=== PATIENT | male | born 1990 | race American Indian/Alaskan Native ===

== ENCOUNTER 2016-11-16 10:44 | Emergency (ER) | payer MEDICAID ==
--- NOTE | 2016-11-16 16:34 | Emergency Department Report ---
ED General Adult HPI - General Chief complaint: Nausea/Vomiting/Diarrhea Stated complaint: VOMITING Time Seen by Provider: 11/16/16 16:29 Source: patient Mode of arrival: Ambulatory Limitations: No Limitations - History of Present Illness Initial comments: patient presents with 1 month onset of vomiting/coughing up greenish, slimy stuff. States throat hurts with coughing. Denies other associated symptoms including coughing/vomit/spitting up blood, SOB , heart burn, chest pain, feeling of fullness in throat when supine, dsyphagia to solid or liquid, choking-sensation, abdomen pain or discomfort, unintended weight loss/gain. Denies fever, chills, headaches, diarrhea. Denies hx of PR. States no help with Promethazine rx at urgent care 1 week ago. Denies other acute complaints today. - Related Data Previous Rx's Medication Instructions Recorded Last Taken Type Acetaminophen/Codeine 1 tab PO Q6H PRN #25 tab 10/05/14 Unknown Rx [Acetaminophen-Codeine #3 TAB] Cyclobenzaprine [Flexeril 10mg] 10 mg PO QHS #10 tablet 10/05/14 Unknown Rx Ibuprofen [Motrin] 600 mg PO Q8H PRN #40 tablet 10/05/14 Unknown Rx Azithromycin [Zithromax] 250 mg PO QDAY #6 tablet 11/16/16 Unknown Rx Benzonatate [Tessalon Perles] 100 mg PO Q8HR #30 capsule 11/16/16 Unknown Rx Montelukast [Singulair] 10 mg PO QPM #30 tablet 11/16/16 Unknown Rx Allergies Allergy/AdvReac Type Severity Reaction Status Date / Time Penicillins Allergy Swelling Verified 11/16/16 12:09 ED Review of Systems ROS: Stated complaint: VOMITING Other details as noted in HPI Comment: All other systems reviewed and negative ED Past Medical Hx - Past Medical History Additional medical history: CEREBRAL PALSY - Surgical History Additional Surgical History: BILATERAL LEG SURGERY - Social History Smoking Status: Never Smoker Substance Use Type: None - Medications Home Medications: Home Medications Medication Instructions Recorded Confirmed Last Taken Type Acetaminophen/Codeine 1 tab PO Q6H PRN #25 tab 10/05/14 Unknown Rx [Acetaminophen-Codeine #3 TAB] Cyclobenzaprine [Flexeril 10mg] 10 mg PO QHS #10 tablet 10/05/14 Unknown Rx Ibuprofen [Motrin] 600 mg PO Q8H PRN #40 tablet 10/05/14 Unknown Rx Azithromycin [Zithromax] 250 mg PO QDAY #6 tablet 11/16/16 Unknown Rx Benzonatate [Tessalon Perles] 100 mg PO Q8HR #30 capsule 11/16/16 Unknown Rx Montelukast [Singulair] 10 mg PO QPM #30 tablet 11/16/16 Unknown Rx ED Physical Exam - General Limitations: No Limitations General appearance: alert, in no apparent distress - Head Head exam: Present: atraumatic, normocephalic - Eye Eye exam: Present: normal appearance, PERRL, EOMI - ENT ENT exam: Present: normal exam, normal orophraynx, mucous membranes moist, TM's normal bilaterally, normal external ear exam - Neck Neck exam: Present: normal inspection, full ROM. Absent: tenderness, meningismus, lymphadenopathy - Respiratory Respiratory exam: Present: normal lung sounds bilaterally. Absent: respiratory distress, wheezes, rales, rhonchi, stridor, chest wall tenderness, accessory muscle use, decreased breath sounds, prolonged expiratory - Cardiovascular Cardiovascular Exam: Present: regular rate, normal rhythm - GI/Abdominal GI/Abdominal exam: Present: soft, normal bowel sounds. Absent: distended, tenderness, guarding, rebound, rigid, organomegaly - Extremities Exam Extremities exam: Present: normal inspection, full ROM, normal capillary refill. Absent: tenderness, pedal edema, joint swelling, calf tenderness - Back Exam Back exam: Present: normal inspection, full ROM. Absent: CVA tenderness (R), CVA tenderness (L) - Neurological Exam Neurological exam: Present: alert, oriented X3, normal gait. Absent: motor sensory deficit, reflexes normal - Psychiatric Psychiatric exam: Present: normal affect, normal mood - Skin Skin exam: Present: warm, dry, intact, normal color. Absent: rash, cyanosis, diaphoretic ED Course Vital Signs 11/16/16 12:06 Temperature 99.2 F Pulse Rate 85 Respiratory 19 Rate Blood Pressure 136/81 O2 Sat by Pulse 97 Oximetry Critical care attestation.: If time is entered above; I have spent that time in minutes in the direct care of this critically ill patient, excluding procedure time. ED Disposition Clinical Impression: Bronchitis Disposition: DISCHARGED TO HOME OR SELFCARE Is pt being admited?: No Does the pt Need Aspirin: No Condition: Stable Instructions: Chronic Bronchitis (ED) Prescriptions: Montelukast [Singulair] 10 mg PO QPM #30 tablet Benzonatate [Tessalon Perles] 100 mg PO Q8HR #30 capsule Azithromycin [Zithromax] 250 mg PO QDAY #6 tablet Referrals: [facility] [Outside] - 2-3 Days PRIMARY CARE,MD [Primary Care Provider] - 2-3 Days
[2016-11-16 16:57] VITALS: BP 133/61
== END 2016-11-16 16:57 | disposition home or self-care (01) ==
LOC: ED 10:44
DX: J40 Bronchitis, not specified as acute or chronic (principal); Z88.0 Allergy status to penicillin
CPT/HCPCS: 99282